=== PATIENT | male | born 1950 | race Caucasian/White ===

== ENCOUNTER 2024-08-09 15:21 | Inpatient (IN) | payer MEDICARE ==
[~2024-08-09 15:21] MED LIST: Iopamidol-370 76% 500 ML MDV (1 ML CHARGE) ONE
[2024-08-09 16:03] LABS: #Basophils 0.03 10x3/uL (0.0-0.2); %Basophils 0.3 % (0.0-1.0); %Eosinophils 1.4 % (0.0-10.0); %Lymphocytes 4.9 % (21.0-51.0); %Monocytes 7.6 % (0.0-10.0); %Neutrophils 85.2 % (42.0-75.0); Hemoglobin 9.2 g/dL (14.0-18.0); Mean Corpuscular HGB CONC 31.7 g/dL (32.0-36.0); Mean Corpuscular Hemoglobin 26.2 pg (27.0-31.0); Mean Corpuscular Volume 82.6 fL (78.0-98.0); Mean Platelet Volume 8.3 fL (7.4-10.4); Platelet Count 384 10x3/uL (130-400); RBC Distribution Width 15.2 % (11.5-14.5); Red Blood Cell (RBC) Count 3.51 mill/uL (4.70-6.10)
[2024-08-09] MEDS ORDERED: Morphine 4 MG/ML VIAL ONE (16:15)
[2024-08-09 16:19] LABS: ALT (SGPT) 8 U/L (8-55); AST (SGOT) 22 U/L (5-34); Albumin 2.5 g/dL (3.4-4.8); Alkaline Phosphatase 49 U/L (40-110); Anion Gap 16 mmol/L (10-20); BUN (Urea Nitrogen) 41 mg/dL (8.4-25.7); Bilirubin, Total 0.4 mg/dL (0.2-1.2); Calc. Creatinine Clearance 0 mL/min (70-130); Calcium 9.8 mg/dL (7.8-10.44); Carbon Dioxide 21 mmol/L (23-31); Chloride 103 mmol/L (98-107); Estimated GFR 40; Globulin 4.4 g/dL (2.4-3.5); Glucose 103 mg/dL (83-110); Lipase 10 U/L (8-78); Magnesium 2.1 mg/dL (1.6-2.6); Potassium 4.1 mmol/L (3.5-5.1); Protein, Total 6.9 g/dL (5.8-8.1); Sodium 136 mmol/L (136-145)
[2024-08-09 17:27] LABS: INR-International Normal Ratio 1.4; PTT 34.7 sec (22.9-36.1); Prothrombin Time 16.7 sec (12.0-14.7)
[2024-08-09 18:37] LABS: Actual Bicarbonate (HCO3v) 22.5 mEq/L (22-28); Analyzer IN Cardio ER; Base Excess -0.5 mEq/L (-2.0 to +3.0); Calcium, Ionized (venous) 1.14 mmol/L (1.16-1.32); Chloride (VBG) 104 mmol/L (98-106); Hematocrit-VBG 28 % (42.0-52.0); Hemoglobin (Hb) 9.6 g/dL (12.6-17.4); Potassium (VBG) 4.13 mmol/L (3.70-5.30); Sodium 135 mmol/L (133-146)
[2024-08-09 18:38] LABS: Troponin I Less than 0.010 ng/mL (< 0.028)
[2024-08-09 19:12] LABS: Lactic Acid 1.64 mmol/L (0.5-2.2)
[2024-08-09] MEDS ORDERED: Nicotine 14 MG PATCH TD PRN (21:25)
[2024-08-09] MEDS ORDERED: Acetaminophen 650 MG Suppository PR PRN (21:25)
[2024-08-09] MEDS ORDERED: Ondansetron PF 4 MG/2 ML Vial IVP PRN (21:25)
[2024-08-09] MEDS ORDERED: Ondansetron ODT 4 MG TAB PO PRN (21:25)
[2024-08-09 23:15] VITALS: BMI 24.5
[2024-08-09] MEDS: Lactated Ringer's 500 ML IV SCH (23:28)
[2024-08-09] MEDS: Metoprolol Tartrate 5 MG (5 mL) VIAL IVP SCH (23:28)
[2024-08-09] MEDS: Acetaminophen 325 MG TAB PO SCH (23:28)
[2024-08-10] MEDS: Metoprolol Tartrate 5 MG (5 mL) VIAL IVP SCH (01:14)
[2024-08-10] MEDS: Metoprolol Tartrate 5 MG (5 mL) VIAL ONE ×2 (01:14→06:45)
[2024-08-10] MEDS: Digoxin 0.5 MG/2 ML AMP SLOW IVP SCH (01:50)
[2024-08-10 01:52] LABS: #Basophils Less than 0.03 10x3/uL (0.0-0.2); %Basophils 0.2 % (0.0-1.0); %Eosinophils 2.9 % (0.0-10.0); %Lymphocytes 3.1 % (21.0-51.0); %Monocytes 6.2 % (0.0-10.0); Hematocrit 24.8 % (42.0-52.0); Mean Corpuscular HGB CONC 32.3 g/dL (32.0-36.0); Mean Corpuscular Hemoglobin 26.5 pg (27.0-31.0); Mean Corpuscular Volume 82.1 fL (78.0-98.0); Mean Platelet Volume 8.3 fL (7.4-10.4); Platelet Count 332 10x3/uL (130-400); RBC Distribution Width 15.2 % (11.5-14.5); Red Blood Cell (RBC) Count 3.02 mill/uL (4.70-6.10)
[2024-08-10 02:05] LABS: Lactic Acid 1.88 mmol/L (0.5-2.2)
[2024-08-10 02:14] LABS: ALT (SGPT) 7 U/L (8-55); AST (SGOT) 16 U/L (5-34); Albumin 2.1 g/dL (3.4-4.8); Alkaline Phosphatase 41 U/L (40-110); Anion Gap 14 mmol/L (10-20); BUN (Urea Nitrogen) 38 mg/dL (8.4-25.7); Bilirubin, Total 0.4 mg/dL (0.2-1.2); Calc. Creatinine Clearance 44 mL/min (70-130); Calcium 8.6 mg/dL (7.8-10.44); Carbon Dioxide 18 mmol/L (23-31); Chloride 105 mmol/L (98-107); Estimated GFR 42; Globulin 3.7 g/dL (2.4-3.5); Glucose 127 mg/dL (83-110); Potassium 3.9 mmol/L (3.5-5.1); Protein, Total 5.8 g/dL (5.8-8.1); Sodium 133 mmol/L (136-145)
[2024-08-10] MEDS: Albumin 25% 25 GM (100 mL) BOT IVPB SCH ×2 (03:45→08:40)
[2024-08-10] MEDS: Lactated Ringer's 500 ML IV SCH (03:45)
[2024-08-10] MEDS ORDERED: Amiodarone 450 MG in Dextrose 5% in Water 250 ML IVPB SCH (04:00)
[2024-08-10] MEDS: cefTRIAXone\\ROCEPHIN 1 GM in Sodium Chloride 0.9% 100 ML IVPB SCH (04:04)
[2024-08-10] MEDS: Amiodarone 150 MG, Admixture Fee 1 EACH in Dextrose 5% in Water 100 ML IVPB SCH (04:37)
[2024-08-10] MEDS: Vancomycin (BATCH) 2 GM in Premix 1 BAG IVPB SCH (04:38)
[2024-08-10] MEDS: dilTIAZem 25 MG/5 ML VIAL SLOW IVP SCH (06:57)
[2024-08-10 07:05] LABS: Magnesium 1.9 mg/dL (1.6-2.6); Phosphorus 3.1 mg/dL (2.3-4.7)
[2024-08-10] MEDS: Sodium Chloride 0.9% 1,000 ML IV SCH ×2 (07:20→18:30)
[2024-08-10 07:21] LABS: Lactic Acid 4.21 mmol/L (0.5-2.2)
[2024-08-10] MEDS: dilTIAZem 25 MG/5 ML VIAL ONE (08:16)
[2024-08-10] MEDS: Magnesium 2 GM/50 ML(in water) 2 GM in Premix 1 BAG IVPB SCH (08:44)
[2024-08-10] MEDS ORDERED: Vancomycin 1.5 GM in Sodium Chloride 0.9% 250 ML 300 ML IVPB SCH (09:00)
[2024-08-10] MEDS: Famotidine/PF 20 mg/2ml Vial SLOW IVP SCH (09:09)
[2024-08-10] MEDS: Metoprolol Tartrate 25 MG TAB PO SCH ×2 (09:21→18:30)
[2024-08-10] MEDS: Famotidine 20 MG TAB PO SCH (10:01)
[2024-08-10] MEDS: fentaNYL 50 mcg/mL 1 mL Vial SLOW IVP PRN (10:41)
[2024-08-10] MEDS: Cefepime 1 GM in Sodium Chloride 0.9% 100 ML IVPB SCH (10:49)
[2024-08-10] MEDS: Midodrine HCl 5 MG TAB PO SCH (18:39)
[2024-08-11 05:27] LABS: Albumin 2.7 g/dL (3.4-4.8); Anion Gap 14 mmol/L (10-20); BUN (Urea Nitrogen) 33 mg/dL (8.4-25.7); BUN/Creatinine Ratio 23.57; Calc. Creatinine Clearance 52 mL/min (70-130); Calcium 8.2 mg/dL (7.8-10.44); Carbon Dioxide 18 mmol/L (23-31); Chloride 109 mmol/L (98-107); Estimated GFR 52; Glucose 85 mg/dL (83-110); Hematocrit 23.6 % (42.0-52.0); Hemoglobin 7.2 g/dL (14.0-18.0); Mean Corpuscular HGB CONC 30.5 g/dL (32.0-36.0); Mean Corpuscular Hemoglobin 26.2 pg (27.0-31.0); Mean Corpuscular Volume 85.8 fL (78.0-98.0); Mean Platelet Volume 8.7 fL (7.4-10.4); Phosphorus 3.4 mg/dL (2.3-4.7); Platelet Count 316 10x3/uL (130-400); Potassium 3.7 mmol/L (3.5-5.1); RBC Distribution Width 15.3 % (11.5-14.5); Red Blood Cell (RBC) Count 2.75 mill/uL (4.70-6.10); Sodium 137 mmol/L (136-145); Vancomycin, Random 10.6 ug/mL (See Comment)
[2024-08-11] MEDS: VANCOMYCIN 1.25 GM/250 ML BAG 1.25 GM in Premix 1 BAG IVPB SCH (05:29)
[2024-08-11 05:56] LABS: Anisocytosis SLIGHT = 6-15 cells HPF (0-5); Band 19 % (5-11); Burr Cells SLIGHT = 2-5 cells HPF (0-1); Elliptocytes SLIGHT = 2-5 cells HPF (0-1); Eosinophils 3 % (0-10); Hypochromia SLIGHT = 6-15 cells HPF (0-5); Lymphocytes 3 % (21-51); Metamyelocyte 2 % (0-0); Microcytosis SLIGHT = 6-15 cells HPF (0-5); Monocytes 3 % (0-10); Neutrophil 70 % (42-75); Platelet Adequacy Comment Platelets Normal; Poikilocytosis SLIGHT = 6-15 cells HPF (0-5); Polychromasia SLIGHT = 2-3 cells HPF (0-2); Target Cells SLIGHT = 2-5 cells HPF (0-1)
[2024-08-11] MEDS: Morphine 2 MG/ML VIAL SLOW IVP PRN (08:44)
[2024-08-12 04:53] LABS: #Basophils 0.04 10x3/uL (0.0-0.2); %Basophils 0.4 % (0.0-1.0); %Eosinophils 6.8 % (0.0-10.0); %Lymphocytes 6.9 % (21.0-51.0); %Monocytes 6.4 % (0.0-10.0); %Neutrophils 78.6 % (42.0-75.0); Hemoglobin 8.5 g/dL (14.0-18.0); Mean Corpuscular HGB CONC 31.5 g/dL (32.0-36.0); Mean Corpuscular Hemoglobin 26.2 pg (27.0-31.0); Mean Corpuscular Volume 83.1 fL (78.0-98.0); Mean Platelet Volume 9.1 fL (7.4-10.4); Platelet Count 390 10x3/uL (130-400); RBC Distribution Width 15.6 % (11.5-14.5); Red Blood Cell (RBC) Count 3.25 mill/uL (4.70-6.10)
[2024-08-12] MEDS ORDERED: Metoprolol Tartrate 5 MG (5 mL) VIAL IVP PRN (09:00)
[2024-08-12] MEDS: Metoprolol Tartrate 5 MG (5 mL) VIAL IVP SCH (09:41)
[2024-08-12 11:30] LABS: Anion Gap 15 mmol/L (10-20); BUN (Urea Nitrogen) 31 mg/dL (8.4-25.7); Calc. Creatinine Clearance 54 mL/min (70-130); Calcium 8.2 mg/dL (7.8-10.44); Carbon Dioxide 18 mmol/L (23-31); Chloride 107 mmol/L (98-107); Estimated GFR 53; Glucose 93 mg/dL (83-110); Potassium 3.9 mmol/L (3.5-5.1); Sodium 136 mmol/L (136-145)
[2024-08-12] MEDS: GoLYTELY 4,000 ml Bottle PO SCH (18:07)
[2024-08-12] MEDS: Cefepime 2 GM in Sodium Chloride 0.9% 100 ML IVPB SCH (20:45)
[2024-08-12 22:26] LABS: Iron 9 ug/dL (65-175); Iron Binding Capacity, Total 120 mcg/dL (261-462)
[2024-08-13 04:18] LABS: #Basophils 0.04 10x3/uL (0.0-0.2); %Basophils 0.5 % (0.0-1.0); %Eosinophils 5.7 % (0.0-10.0); %Lymphocytes 7.5 % (21.0-51.0); %Monocytes 9.1 % (0.0-10.0); %Neutrophils 75.8 % (42.0-75.0); Hematocrit 28.9 % (42.0-52.0); Hemoglobin 8.9 g/dL (14.0-18.0); Mean Corpuscular HGB CONC 30.8 g/dL (32.0-36.0); Mean Corpuscular Hemoglobin 25.4 pg (27.0-31.0); Mean Corpuscular Volume 82.6 fL (78.0-98.0); Mean Platelet Volume 8.7 fL (7.4-10.4); Platelet Count 385 10x3/uL (130-400); RBC Distribution Width 15.7 % (11.5-14.5)
[2024-08-13 04:35] LABS: Anion Gap 12 mmol/L (10-20); BUN (Urea Nitrogen) 28 mg/dL (8.4-25.7); Calc. Creatinine Clearance 62 mL/min (70-130); Calcium 8.1 mg/dL (7.8-10.44); Carbon Dioxide 17 mmol/L (23-31); Chloride 110 mmol/L (98-107); Estimated GFR 63; Glucose 100 mg/dL (83-110); Potassium 3.7 mmol/L (3.5-5.1); Sodium 135 mmol/L (136-145); Vancomycin, Random 15.6 ug/mL (See Comment)
[2024-08-13] MEDS ORDERED: PROPOFOL 20 ML ONE (10:08)
[2024-08-13] MEDS ORDERED: PHENYLEPHRINE-NS 100 MCG/ML 10 ML SYRINGE ONE (10:58)
[2024-08-13] MEDS ORDERED: fentaNYL PF 100 MCG/2 ML SYRINGE ONE (11:00)
[2024-08-13] MEDS ORDERED: PROPOFOL 200 MG/20 ML VIAL ONE (11:13)
[2024-08-13] MEDS ORDERED: Lidocaine 1% PF 5 ML VIAL ONE (11:13)
[2024-08-13] MEDS: metroNIDAZOLE 500 MG in Premix 1 BAG IVPB SCH (12:23)
[2024-08-14 04:52] LABS: #Basophils 0.03 10x3/uL (0.0-0.2); %Basophils 0.3 % (0.0-1.0); %Eosinophils 6.4 % (0.0-10.0); %Lymphocytes 8.2 % (21.0-51.0); %Monocytes 9.5 % (0.0-10.0); %Neutrophils 73.6 % (42.0-75.0); Hematocrit 28.5 % (42.0-52.0); Hemoglobin 8.8 g/dL (14.0-18.0); Mean Corpuscular HGB CONC 30.9 g/dL (32.0-36.0); Mean Corpuscular Hemoglobin 25.8 pg (27.0-31.0); Mean Corpuscular Volume 83.6 fL (78.0-98.0); Mean Platelet Volume 9.1 fL (7.4-10.4); Platelet Count 412 10x3/uL (130-400); RBC Distribution Width 15.9 % (11.5-14.5); Red Blood Cell (RBC) Count 3.41 mill/uL (4.70-6.10)
[2024-08-14 11:09] LABS: Anion Gap 15 mmol/L (10-20); BUN (Urea Nitrogen) 25 mg/dL (8.4-25.7); Calc. Creatinine Clearance 60 mL/min (70-130); Calcium 8.2 mg/dL (7.8-10.44); Carbon Dioxide 15 mmol/L (23-31); Chloride 111 mmol/L (98-107); Estimated GFR 61; Glucose 90 mg/dL (83-110); Potassium 3.7 mmol/L (3.5-5.1); Sodium 137 mmol/L (136-145)
[2024-08-14] MEDS: Famotidine 20 MG TAB PO SCH (20:25)
[2024-08-14] MEDS: Famotidine/PF 20 mg/2ml Vial SLOW IVP SCH (21:39)
[2024-08-15 04:40] LABS: #Basophils 0.03 10x3/uL (0.0-0.2); %Basophils 0.3 % (0.0-1.0); %Eosinophils 6.3 % (0.0-10.0); %Lymphocytes 8.4 % (21.0-51.0); %Monocytes 8.4 % (0.0-10.0); Hematocrit 27.4 % (42.0-52.0); Hemoglobin 8.3 g/dL (14.0-18.0); Mean Corpuscular HGB CONC 30.3 g/dL (32.0-36.0); Mean Corpuscular Hemoglobin 26.1 pg (27.0-31.0); Mean Corpuscular Volume 86.2 fL (78.0-98.0); Mean Platelet Volume 8.9 fL (7.4-10.4); Platelet Count 386 10x3/uL (130-400); RBC Distribution Width 15.9 % (11.5-14.5); Red Blood Cell (RBC) Count 3.18 mill/uL (4.70-6.10)
[2024-08-15 04:49] LABS: Anion Gap 13 mmol/L (10-20); BUN (Urea Nitrogen) 19 mg/dL (8.4-25.7); Calc. Creatinine Clearance 68 mL/min (70-130); Carbon Dioxide 15 mmol/L (23-31); Chloride 115 mmol/L (98-107); Estimated GFR 71; Glucose 79 mg/dL (83-110); Potassium 3.7 mmol/L (3.5-5.1); Sodium 139 mmol/L (136-145)
[2024-08-15 09:36] VITALS: BP 108/59; TEMP 97.8
== END 2024-08-15 12:15 | disposition home or self-care (01) | DRG 840 ==
LOC: ERS 15:21 → OBS 19:38 → CCU 08-10 08:00 → 2NO 08-10 14:52
PROVIDERS: ADMIT Student in an Organized Health Care Education/Training Program; ATTEND Family Medicine
PROC: 3E03329 Introduction of Other Anti-infective into Peripheral Vein, Percutaneous Approach (ICD-10-PCS; 2024-08-10)
PROC: 30233J1 Transfusion of Nonautologous Serum Albumin into Peripheral Vein, Percutaneous Approach (ICD-10-PCS; 2024-08-10)
PROC: 0DBG8ZX Excision of Left Large Intestine, Via Natural or Artificial Opening Endoscopic, Diagnostic (ICD-10-PCS; principal; 2024-08-13)
DX: C85.13 Unspecified B-cell lymphoma, intra-abdominal lymph nodes (principal); A41.9 Sepsis, unspecified organism; N17.9 Acute kidney failure, unspecified; C18.9 Malignant neoplasm of colon, unspecified; E87.1 Hypo-osmolality and hyponatremia; E87.20 Acidosis, unspecified; K92.1 Melena; Z66 Do not resuscitate; D50.9 Iron deficiency anemia, unspecified; K56.690 Other partial intestinal obstruction; K57.30 Diverticulosis of large intestine without perforation or abscess without bleeding; I48.91 Unspecified atrial fibrillation; C85.93 Non-Hodgkin lymphoma, unspecified, intra-abdominal lymph nodes; Z88.0 Allergy status to penicillin; Z88.8 Allergy status to other drugs, medicaments and biological substances; F17.210 Nicotine dependence, cigarettes, uncomplicated; Z98.890 Other specified postprocedural states; Z51.5 Encounter for palliative care
CPT/HCPCS: 36415; 36416; 71045; 74177; 80048; 80053; 80069; 80202; 82378; 82728; 82805; 83540; 83550; 83605; 83690; 83735; 84100; 84484; 85025; 85610; 85730; 86301; 86850; 86900; 86901; 87040; 87076; 87077; 87149; 88305; 88341; 88342; 88365; 93005; 93010; 93306; 96361; 96374; J0282; J0692; J0696; J1160; J2272; J2704; J3010; J3370; J3475; J7030; J7070; P9047; Q9967